=== PATIENT | female | born 1975 | race Two or more races ===

== ENCOUNTER 2024-11-09 08:27 | Outpatient (OUT) | payer OTHER, SELFPAY ==
--- NOTE | 2024-11-09 08:38 | CT_ITS ---
The [address] [address] Patient Name: FINESSE AJCKSON MRN: [id number] date: 1975 Sex: F Assigned Patient Location: CT Current Patient Location: CT Accession/Order Number: [id number] Exam Date: 11/09/2024 09:04 Report Date: 11/09/2024 09:09 At the request of: FAY WADDELL Procedure: CT cervical spine wo con CT CERVICAL SPINE WITHOUT CONTRAST WITH 3D RECONSTRUCTIONS: CLINICAL HISTORY: Chronic neck pain with numbness at the right arm. No injury. COMPARISON: None TECHNIQUE: Spiral axial unenhanced images were obtained through the cervical spine. Sagittal, coronal and 3D volume-rendered reconstructions were also reviewed. This CT exam was performed using one or more following dose reduction techniques: Automated exposure control, adjustment of the mA and/or kV according to patient size, or use of iterative reconstruction technique. FINDINGS: Alignment is maintained in the sagittal plane. No fractures are identified. The disc spaces are uniform. There is minimal endplate spurring, greatest at C6-7. Minor facet disease is noted. No significant central or foraminal stenosis is seen. The atlantoaxial relationship is maintained. No prevertebral soft tissue swelling is seen. Mild sphenoid mucosal thickening is visualized. There are shotty cervical lymph nodes largest in the jugulodigastric region. Carotid artery plaque is seen on the right. The thyroid lobes are heterogeneous and there is a potential dominant nodule on the left. The upper imaged lungs show no contributory findings. CT/CT cervical spine wo con IMPRESSION: MINIMAL DEGENERATIVE CHANGE Impression dictated by: Araseli East M.D. 11/09/2024 9:09 AM Dictation Location: [place] [address] Electronically authenticated by: [id number] Y Date: 11/09/2024 09:09
== END 2024-11-09 08:28 | disposition home or self-care (01) ==
LOC: CT 08:32
PROVIDERS: PCP Family Medicine; Visit Provider Physician Assistant
DX: M50.30 Other cervical disc degeneration, unspecified cervical region (principal); M54.12 Radiculopathy, cervical region
CPT/HCPCS: 72125